=== PATIENT | male | born 1955 | race Caucasian/White ===

== ENCOUNTER 2019-11-19 07:25 | Inpatient (IN) ==
--- NOTE | 2019-10-23 09:58 | PAT Medication Instructions ---
Medication Instructions Date of Service October 23, 2019 Home Medications lisinopril 10 mg PO QPM rivaroxaban [Xarelto] 20 mg PO PM ASK your prescriber and surgeon rivaroxaban [Xarelto] 20 mg PO PM (in order for spinal anesthesia, rivaroxaban/Xarelto needs to be stopped 3 days/72 hours before surgery. Please check if okay with doctor that prescribes this to you) Take evening before surgery lisinopril 10 mg PO QPM Other Notes If you have any questions please call us at [phone] or [phone] or [phone] or [phone]
--- NOTE | 2019-10-24 11:17 | Anesthesiology Consultation ---
Date of Service October 24, 2019 Assessment & Plan (1) Encounter for pre-operative examination: Chart Review Chart Review: Acceptable Risk for Surgery (pending surgeon ordered PCP clearance ) and Patient seen in Pre Admission Testing History Surgery Operation Date: 11/19/19 09:20 Proposed Procedures p Right Total Hip Arthroplasty - Jon Cordova Height/Weight Height: 5 ft 11 in Weight: 91.4 kg Allergies Allergy/AdvReac Type Severity Reaction Status Date / Time oxycodone Allergy Mild Gastrointestinal Verified 10/18/19 10:31 Upset Medications Home Medications Medication Instructions Recorded Confirmed Last Taken lisinopril 10 mg PO QPM 10/18/19 10/18/19 Unknown rivaroxaban [Xarelto] 20 mg PO PM 10/18/19 10/18/19 Unknown Past Medical History Medical History GERD (gastroesophageal reflux disease) well controlled without meds Hypertension Osteoarthritis Pulmonary emboli Dx 06/2019- right PE- placed on xarelto- no recent issues; Did travel prior to PE - no known clotting disorders Exercise / Class Metabolic Activity II 4-5 Yardwork/Stairs/Walk up hill (no chest pain or SOB with one flight of stairs ) Past Surgical History Surgical History Hx laparoscopic cholecystectomy Hx of colonoscopy Hx of hand surgery left pinky finger pins Past Anesthesia History No Hx of Anesthesia Complications and No Family Hx of Anesthesia Complications History of PONV History of PONV (usually due to pain meds ) and Hx of Motion Sickness (mild ) Social History Smoking Status: Never smoker Do You Dip or Chew Tobacco: No Hx Alcohol Use: Yes alcohol intake frequency: a few times a month Hx Substance Use: No substance use type: does not use Review of Systems Reflux well controlled. Patient denies chest pain, shortness of breath, dyspnea on exertion, wheezing, palpitations. Mild cough- chronic/stable - non productive - on Lisinopril. No hx of seizures, stroke, MS, blood tranfusion, steroid use Physical Exam Vital Signs VITALS BP 148/91 P 69 TEMP 97.8 SP02 97% RESP 18 Constitutional no acute distress ENMT Mouth: no TMJ abnormality Thyromental Distance: > or= 3.5 Finger Breadths (3.5) Mallampati Class: III No missing teeth. Caps to molars Neck neck extension not limited Respiratory normal respiratory effort; no respiratory distress and no cough Auscultation: lungs clear to auscultation bilaterally; no wheezes Cardiovascular Rate/Rhythm: regular rate and regular rhythm Vessels: no carotid bruit Musculoskeletal Spine: no pain with cervical ROM Neurologic moves all extremities Psychiatric Orientation: alert Testing Laboratory Results 10/24/19 11:27 10/24/19 11:27 PT 11.9 Seconds (9.0-12.0) 10/24/19 11:27 INR 1.2 (0.9-1.1) H 10/24/19 11: APTT 32.1 Seconds (21.0-31.0) H 10/24/19 11:27 Urine Color Dark Yellow 10/24/19 11:27 Urine Appearance Clear (Clear) 10/24/19 11:27 Urine pH 6.0 (4.5-7.5) 10/24/19 11:27 Ur Specific [place] 1.027 (1.000-1.030) 10/24/19 11:27 Urine Protein Negative (Negative) 10/24/19 11:27 Urine Glucose (UA) Negative (Negative) 10/24/19 11:27 Urine Ketones Negative (Negative) 10/24/19 11:27 Urine Nitrite Negative (Negative) 10/24/19 11:27 Ur Leukocyte Esterase Negative (Negative) 10/24/19 11:27 Blood Type B Positive 10/24/19 11:27 Antibody Screen NEGATIVE 10/24/19 11:27 10/24/19 11:27 Urine Culture - Preliminary Urine,Clean Catch No growth - Less than 1,000 colonies/mL, Final report to follow. Electrocardiogram Date: 10/24/19 Findings: + NSR @ (68) Chest X-Ray Date: 10/24/19 Findings: + NAD Cardiac silhouette is upper limits of normal in size. Tortuosity of the descending thoracic aorta
--- NOTE | 2019-10-24 11:58 | XRay Report ---
XR chest Pre-admission PA/Lat HISTORY: 64 years-old Male pat preoperative exam. No acute chest complaints COMPARISON: None available TECHNIQUE: PA and lateral views of the chest FINDINGS: Cardiac silhouette is upper limits of normal in size. Tortuosity of the descending thoracic aorta. No pneumothorax, pleural effusion, focal airspace consolidation or overt pulmonary edema. Degenerative changes of the shoulders and spine. Cholecystectomy. IMPRESSION: No acute process. ACT 112: Negative or not required by law. The above report was generated using voice recognition software. It may contain grammatical, syntax o r spelling errors. Electronically signed by: Ramone Whitney M.D. 10/24/2019 11:57 AM
[2019-10-24 13:43] LABS: Appearance Urine Clear (Clear); Basophils # (auto) 0.03 K/uL (0-0.2); Basophils % (auto) 0.5 %; Bilirubin Urine Negative (Negative); Blood Urine Negative (Negative); Color Urine Dark Yellow; Eosinophils # (auto) 0.25 K/uL (0-0.5); Glucose Urine UA Negative (Negative); Hemoglobin 14.7 g/dL (14.0-18.0); Immature Granulocytes # (auto) 0.03 K/uL (0.00-0.02); Immature Granulocytes % (auto) 0.5 %; Ketones Urine Negative (Negative); Leukocyte Esterase Urine Negative (Negative); Lymphocytes # (auto) 1.18 K/uL (1.2-3.4); Lymphocytes % (auto) 18.8 %; Mean Corpuscular Hgb Conc 33.4 g/dL (32-36); Mean Corpuscular Volume 89.8 fL (80-100); Mean Platelet Volume 10.1 fL (7.4-10.4); Monocytes # (auto) 0.67 K/uL (0.11-0.59); Monocytes % (auto) 10.7 %; Neutrophils # (auto) 4.11 K/uL (1.4-6.5); Neutrophils % (auto) 65.5 %; Nitrite Urine Negative (Negative); Platelet Count 246 K/uL (130-400); Protein Urine Negative (Negative); RDW Coefficient of Variation 12.5 % (11.5-14.5); RDW Standard Deviation 40.8 fL (36.4-46.3); Specific Gravity Urine 1.027 (1.000-1.030); Urobilinogen Urine Negative (Negative); White Blood Count 6.27 K/uL (4.8-10.8)
[2019-10-24 13:54] LABS: INR 1.2 (0.9-1.1); Partial Thromboplastin Ratio 1.2; Partial Thromboplastin Time 32.1 Seconds (21.0-31.0); Prothrombin Time 11.9 Seconds (9.0-12.0)
[2019-10-24 14:09] LABS: Albumin Level 3.6 gm/dl (3.4-5.0); Calcium 8.8 mg/dl (8.5-10.1); Creatinine Clr Calc Pharmacy 73.1 ml/min; Est GFR (African American) 76.4; Est GFR (Non-African American) 65.9; Potassium 3.9 mmol/L (3.5-5.1)
[2019-10-24 14:11] LABS: Globulin 3.5 gm/dl (2.5-4.0); Total Protein 7.1 gm/dl (6.4-8.2)
--- NOTE | 2019-10-24 17:53 | Electrocardiogram Report ---
Test Reason : Blood Pressure : / mmHG Vent. Rate : 068 BPM Atrial Rate : 068 BPM P-R Int : 136 ms QRS Dur : 084 ms QT Int : 422 ms P-R-T Axes : 063 036 015 degrees QTc Int : 448 ms Normal sinus rhythm Normal ECG No previous ECGs available Confirmed by Dylan Monroy ([id number]) on 10/24/2019 5:53:11 PM Referred By: Jon Cordova Confirmed By:Antonio Monroy
--- NOTE | 2019-11-18 19:08 | History & Physical Report ---
Date of Service November 18, 2019 Assessment & Plan (1) Degenerative joint disease of right hip: Pt will be admitted and undergo right ROCIO History of Present Illness Chief Complaint: right hip pain Primary Care Provider: Arianne Quintero MD Pleasant male with right hip pain for years, has failed all forms of conservative measures. Ready for ROCIO Allergies Allergy/AdvReac Type Severity Reaction Status Date / Time oxycodone Allergy Mild Gastrointestinal Verified 10/18/19 10:31 Upset Home Medications Home Medications Medication Instructions Recorded Confirmed Type lisinopril 10 mg PO QPM 10/18/19 10/18/19 History rivaroxaban [Xarelto] 20 mg PO PM 10/18/19 10/18/19 History Past Med/Surg History Medical History GERD (gastroesophageal reflux disease) well controlled without meds Hypertension Osteoarthritis Pulmonary emboli Dx 06/2019- right PE- placed on xarelto- no recent issues; Did travel prior to PE - no known clotting disorders Surgical History Hx laparoscopic cholecystectomy Hx of colonoscopy Hx of hand surgery left pinky finger pins Social History Preferred Language: Urdu Communication Ability: Effective Surgical Pathologist Required: No Beliefs That Will Affect Care: None Current Living Situation: Alone Other Information That Helps Us Care for You: No Feels Safe at Home: Yes Safety Concerns: Feels Safe At This Time Smoking Status: Never smoker Do You Dip or Chew Tobacco: No ; Second Hand Exposure: No ; Tobacco Cessation Education Requested by Patient: No Hx Alcohol Use: Yes Hx Substance Use: No Review of Systems All systems reviewed & are unremarkable except as noted in HPI & below Physical Exam Constitutional: WD/WN, vitals as above Neck: trachea midline, no thyromegaly Respiratory: normal respiratory effort, lungs clear to auscultation Cardiovascular: RRR, no murmur, no edema Gastrointestinal (Abdomen): normal bowel sounds, soft, nontender, no hepatosplenomegaly Musculoskeletal: Hip: + limited ROM of hip, + hip ROM with crepitation and + log roll test positive
[~2019-11-19 07:25] MED LIST: ACETAMINOPHEN 500 MG TAB PO SCH; BUPIVACAINE 0.5 % 5 MG/1 ML PF 10ML VIAL ONE; CEFAZOLIN 2000MG 2,000 MG/15 ML SYR IV SCH; CeleBREX 200 MG CAP PO SCH; FAMOTIDINE 20 MG TAB PO SCH; LR 60ML/HR IV SCH; METOCLOPRAMIDE HCL 10 MG TABLET PO SCH; ROPIVACAINE 0.5% HCL/PF 150 MG, BUPIVACAINE 0.5% MPF 30 ML, EPINEPHrine 30MG/30ML (OR U... INSTIL SCH; TRANEXAMIC ACID 1,000 MG **IV Intra-op IV SCH; TRANEXAMIC ACID 1,000 MG **IV Pre-op IV SCH; dexAMETHasone 4 MG TAB PO SCH
[2019-11-19] MEDS ORDERED: fentaNYL citrate 100 MCG/2 ML VIAL ONE (09:05)
[2019-11-19] MEDS ORDERED: PROPOFOL IV EMULSION 10 MG/ML 20 ML VIAL IV ONE (09:05)
[2019-11-19] MEDS ORDERED: MIDAZOLAM HCL 1 MG/ML 2ML VIAL ONE ×2 (09:05→09:52)
[2019-11-19] MEDS ORDERED: LIDOCAINE HCL 2% 2 ML VIAL/AMP(20MG/ML) INFIL ONE (09:07)
[2019-11-19] MEDS ORDERED: ATROPINE SULFATE 0.1 MG/ML 10ML SYR IV PRN (09:19)
[2019-11-19] MEDS ORDERED: ONDANSETRON INJ 2 MG/ML 2 ML VIAL IV PRN ×2 (09:19→12:44)
[2019-11-19] MEDS ORDERED: ePHEDrine sulfate 50 MG/ML AMP IV PRN (09:19)
[2019-11-19] MEDS ORDERED: HYDROmorphone INJ 1 MG/ML SYRINGE IV PRN (09:19)
[2019-11-19] MEDS ORDERED: KETOROLAC TROMETHAMINE 15 MG/ML VIAL IV PRN (09:23)
--- NOTE | 2019-11-19 09:23 | History & Physical Bridge Note ---
Date of Service November 19, 2019 History & Physical Bridge Note I have examined the patient, reviewed the History & Physical and in the interval since the performance of the History & Physical I have noted the following changes of clinical significance: no changes noted
[2019-11-19] MEDS ORDERED: ORTHO JOINT ANESTHETIC ONE (09:50)
[2019-11-19] MEDS ORDERED: BACITRACIN INJ 50,000 UNIT VIAL ONE (09:50)
[2019-11-19] MEDS: LR 500ML BOLUS, THEN 15ML/HR IV SCH ×2 (10:13→10:17)
[2019-11-19] MEDS ORDERED: ePHEDrine sulfate 50 MG/ML AMP ONE (10:51)
--- NOTE | 2019-11-19 11:20 | Operative Report ---
Post Operative Report Pre & Post Diagnosis Operation Date: 11/19/19 10:30 Pre-Op Diagnosis: Right Hip Osteoarthritis Post-Op Diagnosis: Right Hip Osteoarthritis I identified the patient and participated in the time-out.: Yes Procedure Operation Date: 11/19/19 10:30 Actual Procedures p Right Total Hip Arthroplasty(Right) - Jon Cordova Surgeon Jon Cordova Trim Technician Victoriano Bernal PAc Estimated Blood Loss 30 Findings Consistent with Post-Op Diagnosis Specimens none Complications none Disposition Disposition: Recovery Room Description of Procedure IMPLANTS USED: Scarlet size 62 mm Trident 2 Tritanum acetabular cup, 1 acetab ular screw, 36 mm X3 elevated liner, a #6 Accolade 2 stem with a 127 neck and 3 neck, 36 mm +0 ceramic head INDICATIONS: Mr. Simpson is a pleasant male who has unfortunately failed all forms of conservative measures. Therefore, they have has decided to undergo elective surgical intervention. All risks and benefits of the surgery were discussed with the patient and the family in entirety. PROCEDURE: The patient was brought to the operating room and properly identified by myself, anesthesia, and staff. Patient was given a spinal anesthetic and placed on the operating table with the right hip up. The hip was then prepped and draped in the standard orthopedic fashion. We made a standard posterolateral approach over the greater trochanteric area. We then dissected down to subcutaneous tissue until the fascia was identified. We incised the fascia in line with the skin incision. We then split the gluteus vero muscles with finger dissection. We then put the Charnley retractor in place. We placed the retractor underneath the gluteus medius to expose the piriformis. The piriformis was then tagged with a tag suture and released from the insertion from the greater trochanteric area with the use of electrocautery. We then performed a T capsulotomy and the femoral head and neck were atraumatically dislocated. We then performed femoral neck osteotomy at the pre-template site. We removed the femoral head and neck without difficulty. We then placed the retractor around the acetabulum. We then began to ream the acetabulum to the appropriate size. We then impacted the cup into place and had a very good fixation within the pelvis. We then put the liner in place as well. Then using multiple size approaches from the Accolade 2 system a size ##6 fit very nicely in the proximal femur. I then put trial components in place. WE had very good range of motion, excellent stability, and excellent leg length equality. We removed the trial components and irrigated the wound. We then impacted the components in place and irrigated the wound once more. We then closed the capsule and fascia with a 0 Vicryl suture, the deep dermis with 2-0 Vicryl suture, and finally the skin with a running 3-0 Vicryl subcuticular stitch. A sterile dressing was applied. The patient was taken to the recovery room in stable condition. Due to the complex nature of the procedure, the entire surgery was performed with the operational assistance of Victoriano Bernal PA-C. The diver assistant was under direct supervision, was involved in the actual performance of all aspects of the surgical procedure including hemostasis, tissue retraction and incision, instrument management, patient positioning, and wound closure. I attest to the content of the Intraoperative Record and any orders documented therein. Any exceptions are noted below.
--- NOTE | 2019-11-19 12:38 | Anesthesiology Progress Note ---
Date of Service November 19, 2019 Anesthesia Post Procedure Vital Signs Vital Signs: Temp Pulse Pulse Resp BP Pulse Ox 11/19/19 12:20 63 17 118/71 95 11/19/19 12:10 36.4 C L 69 21 130/70 95 11/19/19 12:00 70 19 120/81 95 11/19/19 11:50 67 12 127/78 95 11/19/19 11:41 36.1 C L 70 18 117/73 96 11/19/19 08:12 37.1 C 71 20 154/93 H 97 Pain Intensity Right Hip: Pain Intensity: 0 Transfer of Care Handoff Completed per policy Notes Mental Status: alert / awake / arousable Patient Amnestic to Procedure: Yes Nausea / Vomiting: adequately controlled Pain: adequately controlled Airway Patency, RR, SpO2: stable & adequate BP & HR: stable & adequate Hydration State: stable & adequate Neuraxial Anesthesia: was administered and sensory block is resolving Anesthetic Complications: no major complications apparent
[2019-11-19] MEDS ORDERED: TRAMADOL HCL 50 MG TABLET PO PRN (12:44)
[2019-11-19] MEDS ORDERED: MAGNESIUM HYDROXIDE SUSP 30 ML UDC PO PRN (12:44)
[2019-11-19] MEDS ORDERED: OXYCODONE HCL IR 5 MG TAB (IMMEDIATE RELEASE) PO PRN (12:44)
[2019-11-19] MEDS ORDERED: METOCLOPRAMIDE HCL INJ 5 MG/ML 2 ML VIAL IV PRN (12:44)
[2019-11-19] MEDS ORDERED: bisacodyL 10 MG SUPP PR PRN (12:44)
[2019-11-19] MEDS ORDERED: NALOXONE HCL 0.4 MG/1 ML VIAL/CARP IV PRN (12:44)
[2019-11-19] MEDS: SODIUM CHLORIDE 0.9% 1000ML 1,000 ML IV SCH (13:58)
[2019-11-19] MEDS: ACETAMINOPHEN 500 MG TAB PO SCH ×2 (13:59→21:27)
[2019-11-19] MEDS: CEFAZOLIN 2000MG 2,000 MG/15 ML SYR IV SCH (17:18)
[2019-11-19] MEDS ORDERED: SENNA 8.6 MG TAB PO SCH (21:00)
[2019-11-19] MEDS: DOCUSATE SODIUM 100 MG CAP PO SCH (21:25)
[2019-11-20] MEDS: SODIUM CHLORIDE 0.9% 1000ML 1,000 ML IV SCH (00:01)
[2019-11-20] MEDS: CEFAZOLIN 2000MG 2,000 MG/15 ML SYR IV SCH (02:55)
[2019-11-20 05:35] LABS: Basophils # (auto) 0.01 K/uL (0-0.2); Basophils % (auto) 0.1 %; Hematocrit (blood only) 37.2 % (42-52); Hemoglobin 12.5 g/dL (14.0-18.0); Immature Granulocytes # (auto) 0.02 K/uL (0.00-0.02); Immature Granulocytes % (auto) 0.2 %; Lymphocytes # (auto) 0.69 K/uL (1.2-3.4); Lymphocytes % (auto) 5.6 %; Mean Corpuscular Hemoglobin 29.8 pg (25-34); Mean Corpuscular Hgb Conc 33.6 g/dL (32-36); Mean Corpuscular Volume 88.6 fL (80-100); Mean Platelet Volume 9.9 fL (7.4-10.4); Monocytes # (auto) 1.18 K/uL (0.11-0.59); Monocytes % (auto) 9.5 %; Neutrophils # (auto) 10.46 K/uL (1.4-6.5); Neutrophils % (auto) 84.6 %; Platelet Count 239 K/uL (130-400); RDW Coefficient of Variation 12.5 % (11.5-14.5); RDW Standard Deviation 40.2 fL (36.4-46.3); White Blood Count 12.36 K/uL (4.8-10.8)
[2019-11-20] MEDS: ACETAMINOPHEN 500 MG TAB PO SCH ×2 (05:59→14:23)
[2019-11-20 06:05] LABS: BUN Creatinine Ratio 14.7 (10-20); Calcium 8.7 mg/dl (8.5-10.1); Creatinine Clr Calc Pharmacy 50.9 ml/min; Est GFR (African American) 54.6; Est GFR (Non-African American) 47.1
[2019-11-20] MEDS ORDERED: dexAMETHasone 10 MG in SYRINGE 0 ML IV SCH (08:00)
--- NOTE | 2019-11-20 08:02 | Anesthesiology Progress Note ---
Date of Service November 20, 2019 Anesthesia Post Procedure Vital Signs Vital Signs: Temp Pulse Pulse Resp BP Pulse Ox 11/20/19 07:32 36.3 C L 65 16 117/63 97 11/20/19 03:13 36.4 C L 74 12 123/81 96 11/19/19 22:55 36.6 C 81 18 115/68 95 11/19/19 21:34 36.5 C 87 20 122/79 95 11/19/19 15:30 36.6 C 78 18 119/74 97 11/19/19 14:29 77 16 116/77 95 11/19/19 13:14 71 16 131/81 97 11/19/19 13:00 70 16 133/81 95 11/19/19 12:30 36.4 C L 68 18 122/76 95 11/19/19 12:20 63 17 118/71 95 11/19/19 12:10 36.4 C L 69 21 130/70 95 11/19/19 12:00 70 19 120/81 95 11/19/19 11:50 67 12 127/78 95 11/19/19 11:41 36.1 C L 70 18 117/73 96 11/19/19 08:12 37.1 C 71 20 154/93 H 97 Pain Intensity Right Hip: Pain Intensity: 0 Notes Mental Status: alert / awake / arousable and participated in evaluation Patient Amnestic to Procedure: Yes Nausea / Vomiting: adequately controlled Pain: adequately controlled Airway Patency, RR, SpO2: stable & adequate BP & HR: stable & adequate Hydration State: stable & adequate Neuraxial Anesthesia: was administered and sensory block resolved Anesthetic Complications: no major complications apparent and Pt Satisfied with anesthetic care
[2019-11-20] MEDS: DOCUSATE SODIUM 100 MG CAP PO SCH (08:30)
[2019-11-20] MEDS ORDERED: MULTIVITAMIN TAB PO SCH (09:00)
[2019-11-20] MEDS ORDERED: RIVAROXABAN 20 MG TAB PO SCH (09:00)
--- NOTE | 2019-11-20 09:06 | Orthopedic Progress Note ---
Date of Service November 20, 2019 Assessment & Plan (1) Degenerative joint disease of right hip: Postop day 1 status post right total hip arthroplasty. PT/OT protocols. Weightbearing as tolerated. DVT prophylaxis-rivaroxaban, SCDs Pain management-p.o. Tylenol oxycodone and/or tramadol, IV hydromorphone KRISTOPHER-creatinine bumped from 1.1 preop to 1.5. Will give 500 cc bolus. Will recheck creatinine later today and plan for outpatient lab work after discharge. DC planning-patient is planning for home health services upon discharge. Admission and Anticipated Discharge Date Admission Date: November 19, 2019 Subjective Postop day 1 patient currently sitting in his chair at the bedside. No complaints this morning. Pain is controlled. He denies any shortness of breath, chest pain, lightheadedness. He is hoping to go home today. Physical Exam Physical Exam: Silverlon dressing has some mild drainage in the dressing window but is otherwise intact and dry. Thigh is soft and nontender. Calves are soft nontender. Neurovascular is intact. Toes are mobile. He has good dorsiflexion and plantarflexion of the right foot and ankle. Hemovac drainage was 100 mL from the previous shift. Results & Data ([facility]) Vital Signs (Past 12 Hours) Vital Signs Temp Pulse Resp BP Pulse Ox 11/20/19 07:32 36.3 C L 65 16 117/63 97 11/20/19 03:13 36.4 C L 74 12 123/81 96 11/19/19 22:55 36.6 C 81 18 115/68 95 11/19/19 21:34 36.5 C 87 20 122/79 95 Laboratory Results Laboratory Results WBC 12.36 K/uL (4.8-10.8) H 11/20/19 05:04 RBC 4.20 M/uL (4.7-6.1) L 11/20/19 05:04 Hgb 12.5 g/dL (14.0-18.0) L 11/20/19 05:04 Hct 37.2 % (42-52) L 11/20/19 05:04 MCV 88.6 fL (80-100) 11/20/19 05:04 MCH 29.8 pg (25-34) 11/20/19 05:04 MCHC 33.6 g/dL (32-36) 11/20/19 05:04 RDW Std Deviation 40.2 fL (36.4-46.3) 11/20/19 05:04 RDW Coeff of Claudio 12.5 % (11.5-14.5) 11/20/19 05:04 Plt Count 239 K/uL (130-400) 11/20/19 05:04 MPV 9.9 fL (7.4-10.4) 11/20/19 05:04 Immature Gran % (Auto) 0.2 % 11/20/19 05:04 Neut % (Auto) 84.6 % 11/20/19 05:04 Lymph % (Auto) 5.6 % 11/20/19 05:04 [place] % (Auto) 9.5 % 11/20/19 05:04 Eos % (Auto) 0.0 % 11/20/19 05:04 Baso % (Auto) 0.1 % 11/20/19 05:04 Immature Gran # (Auto) 0.02 K/uL (0.00-0.02) 11/20/19 05:04 Neut # (Auto) 10.46 K/uL (1.4-6.5) H 11/20/19 05:04 Lymph # (Auto) 0.69 K/uL (1.2-3.4) L 11/20/19 05:04 [place] # (Auto) 1.18 K/uL (0.11-0.59) H 11/20/19 05:04 Eos # (Auto) 0.00 K/uL (0-0.5) 11/20/19 05:04 Baso # (Auto) 0.01 K/uL (0-0.2) 11/20/19 05:04 PT 11.9 Seconds (9.0-12.0) 10/24/19 11:27 INR 1.2 (0.9-1.1) H 10/24/19 11:27 APTT 32.1 Seconds (21.0-31.0) H 10/24/19 11:27 PTT Ratio 1.2 10/24/19 11:27 Sodium 138 mmol/L (136-145) 11/20/19 05:04 Potassium 4.0 mmol/L (3.5-5.1) 11/20/19 05:04 Chloride 109 mmol/L (98-107) H 11/20/19 05:04 Carbon Dioxide 23 mmol/L (21-32) 11/20/19 05:04 Anion Gap 6.0 (3-11) 11/20/19 05:04 BUN 22 mg/dl (7-18) H 11/20/19 05:04 Creatinine 1.52 mg/dl (0.6-1.4) H 11/20/19 05:04 Est Cr Clr Drug Dosing 50.9 ml/min 11/20/19 05:04 Est GFR ( Amer) 54.6 11/20/19 05:04 Est GFR (Non-Af Amer) 47.1 11/20/19 05:04 BUN/Creatinine Ratio 14.7 (10-20) 11/20/19 05:04 Glucose 137 mg/dl (70-99) H 11/20/19 05:04 Calcium 8.7 mg/dl (8.5-10.1) 11/20/19 05:04 Total Bilirubin 1.0 mg/dl (0.2-1) 10/24/19 11:27 AST 21 U/L (15-37) 10/24/19 11:27 ALT 36 U/L (12-78) 10/24/19 11:27 Alkaline Phosphatase 79 U/L (45-117) 10/24/19 11:27 Total Protein 7.1 gm/dl (6.4-8.2) 10/24/19 11:27 Albumin 3.6 gm/dl (3.4-5.0) 10/24/19 11:27 Globulin 3.5 gm/dl (2.5-4.0) 10/24/19 11:27 Albumin/Globulin Ratio 1.0 (0.9-2) 10/24/19 11:27 Urine Color Dark Yellow 10/24/19 11:27 Urine Appearance Clear (Clear) 10/24/19 11:27 Urine pH 6.0 (4.5-7.5) 10/24/19 11:27 Ur Specific [place] 1.027 (1.000-1.030) 10/24/19 11:27 Urine Protein Negative (Negative) 10/24/19 11:27 Urine Glucose (UA) Negative (Negative) 10/24/19 11:27 Urine Ketones Negative (Negative) 10/24/19 11:27 Urine Blood Negative (Negative) 10/24/19 11:27 Urine Nitrite Negative (Negative) 10/24/19 11:27 Urine Bilirubin Negative (Negative) 10/24/19 11:27 Urine Urobilinogen Negative (Negative) 10/24/19 11:27 Ur Leukocyte Esterase Negative (Negative) 10/24/19 11:27 Nasal Screen MRSA (PCR) Positive (Negative) A 10/24/19 11:27 Hepatitis C Ab Screen Neg (Neg) 11/20/19 05:04 Blood Type B Positive 10/24/19 11:27 Antibody Screen NEGATIVE 10/24/19 11:27
[2019-11-20] MEDS ORDERED: SODIUM CHLORIDE 0.9% 1000ML 500 ML IV ONE (09:21)
[2019-11-20 12:35] LABS: BUN Creatinine Ratio 15.5 (10-20); Calcium 9.2 mg/dl (8.5-10.1); Creatinine Clr Calc Pharmacy 50.3 ml/min; Est GFR (African American) 53.7; Est GFR (Non-African American) 46.3; Potassium 4.6 mmol/L (3.5-5.1)
== END 2019-11-20 14:46 | disposition home health service (06) | DRG 470 ==
LOC: ASU 07:25 → 3E 11:47